=== PATIENT | male | born 1990 | race Caucasian/White ===

== ENCOUNTER 2020-12-14 11:13 | Day surgery (SDC) | payer OTHER, SELFPAY ==
[~2020-12-14] VITALS: Ht 193 cm; Wt 136.1 kg
[2020-12-14] MEDS ORDERED: ROCURONIUM BROMIDE 10 MG/ML (ZEMURON) IV ONE (12:22)
[2020-12-14] MEDS ORDERED: SUGAMMADEX SODIUM 200 MG/2 ML VIAL IV ONE (12:22)
[2020-12-14] MEDS ORDERED: LR 1,000 ML IV.SOLN IV ONE (12:22)
[2020-12-14] MEDS ORDERED: fentaNYL CITRATE 250 MCG/5 ML AMP IV ONE (12:22)
[2020-12-14] MEDS ORDERED: LIDOCAINE 2%, 20 ML MDV INJ ONE (12:22)
[2020-12-14] MEDS ORDERED: OXYMETAZOLINE HCL 0.05% NASAL SPRAY NS ONE (12:22)
[2020-12-14] MEDS ORDERED: MIDAZOLAM HCL 5 MG/5 ML VIAL IVP ONE (12:22)
[2020-12-14] MEDS ORDERED: MUPIROCIN 2% TOPICAL OINTMENT 22 GM TP ONE (12:22)
[2020-12-14] MEDS ORDERED: PROPOFOL 200MG/ 20ML VIAL (DIPRIVAN) IV ONE (12:22)
[2020-12-14] MEDS ORDERED: DEXAMETHASONE SOD PHOSPHATE 4 MG/ML VIAL IVP ONE (12:22)
[2020-12-14] MEDS ORDERED: LIDOCAINE/EPI 1% 1:100000 20 ML VIAL INJ ONE (12:22)
[2020-12-14] MEDS ORDERED: NS 100 ML BAG IV ONE (12:22)
[2020-12-14] MEDS ORDERED: ONDANSETRON HCL 4 MG/2 ML VIAL IVP ONE (12:22)
[2020-12-14] MEDS ORDERED: DESFLURANE 15 MIN GAS INH ONE (12:22)
[2020-12-14] MEDS ORDERED: WATER FOR IRRIGATION,STERILE 1,000 ML IRRIG.SOLN IR ONE (12:22)
[2020-12-14] MEDS ORDERED: NS 1000 ML IV.SOLN IV ONE (12:22)
[2020-12-14] MEDS ORDERED: ACETAMINOPHEN I.V. 1000 MG 100 ML IV ONE (13:14)
[2020-12-14] MEDS ORDERED: LR 1,000 ML IV SCH (13:30)
[2020-12-14] MEDS ORDERED: HYDROmorphone 1 MG/ML INJ. CARTRIDGE IVP PRN ×2 (13:30)
[2020-12-14] MEDS ORDERED: LABETALOL 100 MG/ 20ML VIAL IVP PRN (13:30)
[2020-12-14] MEDS ORDERED: ONDANSETRON HCL 4 MG/2 ML VIAL IVP PRN (13:30)
[2020-12-14] MEDS ORDERED: MEPERIDINE HCL/PF 25 MG/ML DISP.SYRIN IVP PRN (13:30)
[2020-12-14] MEDS ORDERED: hydrALAZINE HCL 20 MG/ML VIAL IVP PRN (13:30)
[2020-12-14] MEDS ORDERED: MIDAZOLAM HCL 2 MG/2 ML VIAL (VERSED) IVP PRN (13:30)
[2020-12-14] MEDS ORDERED: METOCLOPRAMIDE HCL 10 MG/2 ML VIAL IVP PRN (13:30)
[2020-12-14 17:22] VITALS: BP_SYST 140
== END 2020-12-14 17:00 | disposition home or self-care (01) ==
LOC: SMU 11:13 → SDS 11:13
PROVIDERS: ATTEND Otolaryngology
DX: J34.89 Other specified disorders of nose and nasal sinuses (principal); D38.5 Neoplasm of uncertain behavior of other respiratory organs; J34.2 Deviated nasal septum; G47.33 Obstructive sleep apnea (adult) (pediatric); J45.909 Unspecified asthma, uncomplicated; Z99.89 Dependence on other enabling machines and devices; E66.01 Morbid (severe) obesity due to excess calories; Z20.822 Contact with and (suspected) exposure to COVID-19; Z79.899 Other long term (current) drug therapy
CPT/HCPCS: 30140; 30520; 31240; 88304; 88311; C9399; J0131; J1100; J2001; J2250; J2405; J2704; J3010; J3465; J7030; J7120; U0003